=== PATIENT | male | born 1985 | race African-American/Black ===

== ENCOUNTER 2022-08-30 13:17 | Emergency (ER) | payer SELFPAY ==
[~2022-08-30] VITALS: Ht 185.4 cm; Wt 88.5 kg
--- NOTE | 2022-08-30 13:40 | NUR ---
37 years old male walk in to er for left hand unhealed wound report pain past 3 days and worse last night able to move hand, denies fever chills.
[2022-08-30] MEDS ORDERED: MISCELLANEOUS MED XX ONE (14:00)
[2022-08-30] MEDS ORDERED: NAPR-1192 PO (14:04)
--- NOTE | 2022-08-30 14:31 | NUR ---
Patient discharged to home in stable condition. Written and verbal after care instructions given. Patient verbalizes understanding of instructions. Stressed follow up or return to ER for worsening s/s.
[2022-08-30 14:32] VITALS: BP 122/54
== END 2022-08-30 14:32 | disposition home or self-care (01) ==
LOC: ER 13:17
DX: L91.0 Hypertrophic scar (principal); Z79.899 Other long term (current) drug therapy
CPT/HCPCS: A4663